=== PATIENT | female | born 1955 | race African-American/Black ===

== ENCOUNTER 2017-06-04 08:25 | Emergency (ER) | payer MEDICAID ==
[~2017-06-04] VITALS: Ht 167.6 cm; Wt 105.0 kg
[~2017-06-04 08:25] MED LIST: ACET1TAB14 PO; ASEN10TA10 SL; BUPR300T54 PO; CYCL5TAB PO; FURO-151 PO; HYDR25TA PO; LEVO500T2 PO; LISI10TA5 PO; METF100P3 PO; METR250T PO; MONT10TA24 PO; PROP20TA7 PO
[2017-06-04] MEDS ORDERED: SODIUM CHLORIDE 0.9% 1,000 ML IV ONE ×2 (09:52→11:57)
[2017-06-04] MEDS ORDERED: LIDOCAINE HCL 1% 20ML VIAL (Pyxis) INJ MC ONE (10:00)
[2017-06-04] MEDS ORDERED: LIDOCAINE HCL/PF 1% 10 MG/ML 30ML VIAL INFIL NR (10:17)
[2017-06-04 10:23] LABS: BASOPHILS % 0.8 % (0.0-2.0); EOSINOPHILS % 0.7 % (0.0-5.0); HEMATOCRIT. 37.2 % (36.0-48.0); LYMPHOCYTES % 22.8 % (20.0-50.0); MEAN CORPUSCULAR HEMOGLOBIN 30.9 pg (28.0-32.0); MEAN CORPUSCULAR VOLUME 95.6 fL (81.0-99.0); MEAN PLATELET VOLUME 8.5 fl (7.4-10.4); MONOCYTES % 7.2 % (2.0-8.0); NEUTROPHILS % 68.5 % (40.0-76.0); PLATELET 338 x1000/uL (130-400); RED BLOOD CELL COUNT 3.89 mill/uL (4.2-5.4); RED CELL DISTRIBUTION WIDTH 14.6 % (11.6-14.6)
[2017-06-04 10:25] LABS: CHLORIDE 100 mEq/L (98-107)
[2017-06-04 10:27] LABS: INR 1.1; PROTHROMBIN TIME 11.2 sec (9.4-11.6)
[2017-06-04] MEDS ORDERED: ACETAMINOPHEN WITH CODEINE 300/30MG TABLET PO ONE (11:30)
[2017-06-04] MEDS ORDERED: KETOROLAC 30MG/ML VIAL IV ONE (12:00)
[2017-06-04] MEDS ORDERED: METFORMIN HCL 500MG TABLET PO ONE (12:15)
[2017-06-04 12:20] VITALS: BP 122/66
== END 2017-06-04 12:42 | disposition home or self-care (01) ==
LOC: ER 11:06
DX: S01.511A Laceration without foreign body of lip, initial encounter (principal); J45.909 Unspecified asthma, uncomplicated; I10 Essential (primary) hypertension; E11.65 Type 2 diabetes mellitus with hyperglycemia; J34.2 Deviated nasal septum; M47.812 Spondylosis without myelopathy or radiculopathy, cervical region; Z88.0 Allergy status to penicillin; Z85.43 Personal history of malignant neoplasm of ovary; Z98.890 Other specified postprocedural states; W01.0XXA Fall on same level from slipping, tripping and stumbling without subsequent striking against object, initial encounter; Y93.89 Activity, other specified; Y92.480 Sidewalk as the place of occurrence of the external cause
CPT/HCPCS: 12011; 36415; 70450; 70486; 71045; 80053; 83880; 84484; 85025; 85610; 93005; 96361; 96374; 99285; J1885; J3490; J7030

== ENCOUNTER 2017-06-10 11:41 | Emergency (ER) | payer MEDICAID ==
[~2017-06-10] VITALS: Ht 167.6 cm; Wt 113.0 kg
[2017-06-10 11:44] VITALS: BP 119/70
[2017-06-10] MEDS ORDERED: LIDOCAINE/EPINEPHR/TETRACAINE 3ML TP ONE (12:00)
[2017-06-10] MEDS ORDERED: LIDOCAINE HCL 4% (40MG/ML) SOLN 50ML TOP ONE (12:15)
== END 2017-06-10 12:58 | disposition home or self-care (01) ==
LOC: ER 12:10
DX: Z48.02 Encounter for removal of sutures (principal); I10 Essential (primary) hypertension; J45.909 Unspecified asthma, uncomplicated; E11.9 Type 2 diabetes mellitus without complications; Z88.0 Allergy status to penicillin; X58.XXXD Exposure to other specified factors, subsequent encounter
CPT/HCPCS: 99281

== ENCOUNTER 2018-07-20 15:18 | Inpatient (IN) | payer MEDICAID ==
[~2018-07-20] VITALS: Ht 167.6 cm; Wt 113.4 kg
[2018-07-20] MEDS ORDERED: SODIUM CHLORIDE 0.9% 1,000 ML IV ONE (15:50)
[2018-07-20 18:47] LABS: BASOPHILS % 0.5 % (0.0-2.0); EOSINOPHILS % 0.4 % (0.0-5.0); HEMATOCRIT. 39.5 % (36.0-48.0); HEMOGLOBIN. 13.1 g/dL (12.0-16.0); LYMPHOCYTES % 14.3 % (20.0-50.0); MEAN CORPUSCULAR VOLUME 84.4 fL (81.0-99.0); MEAN PLATELET VOLUME 7.8 fl (7.4-10.4); MONOCYTES % 5.4 % (2.0-8.0); NEUTROPHILS % 79.4 % (40.0-76.0); PLATELET 385 x1000/uL (130-400); RED BLOOD CELL COUNT 4.68 mill/uL (4.2-5.4); RED CELL DISTRIBUTION WIDTH 16.1 % (11.6-14.6)
[2018-07-20 18:52] LABS: CHLORIDE 104 mEq/L (98-107)
[2018-07-20 18:54] LABS: PROTHROMBIN TIME 10.6 sec (9.6-11.0)
[2018-07-20 18:56] LABS: ETHANOL BLOOD < 10 mg/dL
[2018-07-20] MEDS ORDERED: POTASSIUM CHLORIDE 20MEQ TABLET SR PO ONE (19:15)
[2018-07-20] MEDS ORDERED: ACETAMINOPHEN 325MG TABLET PO PRN (21:15)
[2018-07-20] MEDS ORDERED: DEXTROSE 50% WATER 50ML SYRINGE IV PRN (21:15)
[2018-07-20] MEDS ORDERED: ZOLPIDEM TARTRATE 5MG TABLET PO PRN (21:30)
[2018-07-20 23:49] LABS: CLARITY URINE CLOUDY (CLEAR); COLOR URINE YELLOW (YELLOW); KETONES URINE NEGATIVE (NEGATIVE); LEUKOCYTE ESTERASE URINE TRACE (NEGATIVE); NITRITE URINE POSITIVE (NEGATIVE); OCCULT BLOOD URINE NEGATIVE (NEGATIVE); PROTEIN URINE NEGATIVE (NEGATIVE); SPECIFIC GRAVITY URINE 1.034 (1.005-1.030)
[2018-07-21 00:09] LABS: *AMPHETAMINES SCREEN URINE NEGATIVE (NEGATIVE); CANNABINOID URINE SCREEN PRESUMTIVE POSITIVE (NEGATIVE); METHADONE URINE SCREEN NEGATIVE (NEGATIVE); OPIATES URINE SCREEN NEGATIVE (NEGATIVE); PHENCYCLIDINE URINE SCREEN NEGATIVE (NEGATIVE)
[2018-07-21 00:10] LABS: *BARBITURATES SCREEN URINE NEGATIVE (NEGATIVE); *BENZODIAZEPINES SCREEN URINE NEGATIVE (NEGATIVE); *COCAINE SCREEN URINE PRESUMTIVE POSITIVE (NEGATIVE)
[2018-07-21] MEDS: INSULIN LISPRO 100 UNITS/ML SUBCUT SCH ×5 (00:27→20:15)
[2018-07-21 01:00] VITALS: BP 138/66
[2018-07-21] MEDS ORDERED: S350 PO (02:04)
[2018-07-21] MEDS ORDERED: GABA800T97 PO (02:04)
[2018-07-21] MEDS ORDERED: OXYC30TA89 PO (02:04)
[2018-07-21 04:00] VITALS: BP 138/86
[2018-07-21] MEDS ORDERED: HYDROCODONE/ACETAMINOPHEN 5/325MG TABLET PO PRN ×2 (05:00→13:00)
[2018-07-21] MEDS ORDERED: ONDANSETRON HCL 4MG/2ML INJ IV PRN (05:15)
[2018-07-21 06:30] LABS: BASOPHILS % 0.3 % (0.0-2.0); EOSINOPHILS % 0.7 % (0.0-5.0); HEMATOCRIT. 35.3 % (36.0-48.0); HEMOGLOBIN. 11.6 g/dL (12.0-16.0); LYMPHOCYTES % 33.2 % (20.0-50.0); MEAN CORPUSCULAR HEMOGLOBIN 27.7 pg (28.0-32.0); MEAN CORPUSCULAR VOLUME 84.5 fL (81.0-99.0); MEAN PLATELET VOLUME 7.6 fl (7.4-10.4); MONOCYTES % 8.8 % (2.0-8.0); PLATELET 361 x1000/uL (130-400); RED BLOOD CELL COUNT 4.17 mill/uL (4.2-5.4)
[2018-07-21 06:34] LABS: CHLORIDE 110 mEq/L (98-107)
[2018-07-21] MEDS: BLOOD SUGAR DIAGNOSTIC STRIP TEST SCH ×4 (06:49→20:11)
[2018-07-21 08:00] VITALS: BP 149/83
[2018-07-21] MEDS: ENOXAPARIN 30MG/0.3ML SYR SUBCUT SCH ×2 (09:09→20:16)
[2018-07-21] MEDS: ONDANSETRON HCL 4MG/2ML INJ IV PRN (09:09)
[2018-07-21] MEDS: POTASSIUM CHLORIDE 20MEQ TABLET SR PO NR ×2 (10:44→11:21)
[2018-07-21] MEDS: MORPHINE SULFATE 2 MG/ML CPJ (NOT FOR IM USE) IV PRN ×3 (11:21→20:17)
[2018-07-21 12:00] VITALS: BP 147/75
[2018-07-21] MEDS ORDERED: PNEUMOCOCCAL 23-VAL P-SAC VAC 0.5 ML IM ONE (12:00)
[2018-07-21] MEDS ORDERED: CEFTRIAXONE 1 G PREMIX 50 ML IV SCH (13:00)
[2018-07-21] MEDS: GABAPENTIN 400MG CAPSULE PO SCH ×2 (14:54→22:11)
[2018-07-21 16:00] VITALS: BP 145/72
[2018-07-21 20:00] VITALS: BP 143/79
[2018-07-21] MEDS ORDERED: ATORVASTATIN CALCIUM 20MG TABLET PO SCH (21:00)
[2018-07-22] VITALS (7 sets, daily range): BP systolic 127–148; BP diastolic 59–97
[2018-07-22] MEDS: MORPHINE SULFATE 2 MG/ML CPJ (NOT FOR IM USE) IV PRN ×3 (01:04→14:20)
[2018-07-22] MEDS: GABAPENTIN 400MG CAPSULE PO SCH ×2 (06:15→14:04)
[2018-07-22 06:21] LABS: BASOPHILS % 0.8 % (0.0-2.0); EOSINOPHILS % 1.4 % (0.0-5.0); HEMOGLOBIN. 11.4 g/dL (12.0-16.0); LYMPHOCYTES % 30.5 % (20.0-50.0); MEAN CORPUSCULAR HEMOGLOBIN 28.3 pg (28.0-32.0); MEAN CORPUSCULAR VOLUME 84.4 fL (81.0-99.0); MEAN PLATELET VOLUME 7.8 fl (7.4-10.4); MONOCYTES % 9.5 % (2.0-8.0); NEUTROPHILS % 57.8 % (40.0-76.0); PLATELET 355 x1000/uL (130-400); RED BLOOD CELL COUNT 4.03 mill/uL (4.2-5.4); RED CELL DISTRIBUTION WIDTH 16.2 % (11.6-14.6)
[2018-07-22] MEDS: BLOOD SUGAR DIAGNOSTIC STRIP TEST SCH ×2 (06:51→12:40)
[2018-07-22] MEDS: ENOXAPARIN 30MG/0.3ML SYR SUBCUT SCH (08:17)
[2018-07-22] MEDS: INSULIN LISPRO 100 UNITS/ML SUBCUT SCH ×2 (08:18→14:11)
[2018-07-22 08:20] LABS: CHLORIDE 103 mEq/L (98-107)
[2018-07-22] MEDS ORDERED: HYDROCODONE/ACETAMINOPHEN 10/325MG TABLET PO PRN (10:15)
[2018-07-22] MEDS: ONDANSETRON HCL 4MG/2ML INJ IV PRN (11:54)
[2018-07-22] MEDS ORDERED: ATOR20TA PO (15:46)
== END 2018-07-22 17:00 | disposition home or self-care (01) | DRG 48 ==
LOC: ER 15:18 → ENRESERV 22:50 → 7WST 07-21 01:57
PROVIDERS: ADMIT Internal Medicine; ATTEND Internal Medicine
DX: G90.8 Other disorders of autonomic nervous system (principal); E66.01 Morbid (severe) obesity due to excess calories; I95.9 Hypotension, unspecified; E11.9 Type 2 diabetes mellitus without complications; E78.5 Hyperlipidemia, unspecified; F12.10 Cannabis abuse, uncomplicated; E87.6 Hypokalemia; F14.10 Cocaine abuse, uncomplicated; F17.210 Nicotine dependence, cigarettes, uncomplicated; I10 Essential (primary) hypertension; J98.11 Atelectasis; M48.061 Spinal stenosis, lumbar region without neurogenic claudication; M54.30 Sciatica, unspecified side; N39.0 Urinary tract infection, site not specified; W19.XXXA Unspecified fall, initial encounter; Y93.89 Activity, other specified; Y92.89 Other specified places as the place of occurrence of the external cause; Y99.8 Other external cause status; Z85.43 Personal history of malignant neoplasm of ovary; Z90.710 Acquired absence of both cervix and uterus; Z92.21 Personal history of antineoplastic chemotherapy; Z88.0 Allergy status to penicillin; Z79.899 Other long term (current) drug therapy; Z68.41 Body mass index [BMI] 40.0-44.9, adult; Z71.51 Drug abuse counseling and surveillance of drug abuser
CPT/HCPCS: 36415; 71045; 72131; 80048; 80061; 80305; 80320; 82962; 83036; 83880; 84443; 84484; 87077; 87186; 90732; 93005; 93306; 93970; 97162; 99285; C1893; J0696; J1650; J1815; J2270; J2405; J7030; G0480